=== PATIENT | male | born 1955 | race Caucasian/White ===

== ENCOUNTER 2018-10-31 06:52 | Day surgery (SDC) | payer BC ==
[~2018-10-31] VITALS: Ht 177.8 cm; Wt 83.9 kg
[~2018-10-31 06:52] MED LIST: BENADRYL25 MG PO; PROAIR HFA8.5 GM INH; ZYRTEC10 M3 PO
[2018-10-31] MEDS ORDERED: MELOXICAM15 MG PO (07:12)
[2018-10-31] MEDS ORDERED: SYMBICORT 80-10.2 GM INH (07:13)
--- NOTE | 2018-10-31 08:46 | NUR ---
10/31/18 0846 Amber Kunz 0840 PATIENT ARRIVES TO PACU UNREPONSIVE TO VERBAL OR PAINFUL STIMULI. RESP EVEN, BUT DECREASED. DR NATION AT BEDSIDE, AWARE. 0845 PATIENT REPONDS TO PAINFUL STIMULI. RESP EVEN AND UNLABORED, DECREASED, BUT IMPROVES WITH STIMULATION. ROOM AIR SATS 89%, NC TURNED ON TO 2 LITERS.
--- NOTE | 2018-10-31 14:23 | NUR ---
PT RESTING, ALERT AND ORIENTED. PT HAS HAD PREVIOUS SCOPES, HAD FEW QUESTONS. BASICALLY WAITING, EXTENDED A BLESSING WILL FOLLOW NEEDED
--- NOTE | 2018-11-01 07:58 | OR ---
[facility] [address] [place], [place] [address] Signed DATE OF OPERATION: 10/31/2018 SURGEON: Shanique Nation MD COLONOSCOPY REPORT PREOPERATIVE DIAGNOSES: 1. Brother with a history of colonic polyps in his early 50s. 2. Diverticulosis. POSTOPERATIVE DIAGNOSES: 1. Moderate internal anal skin tag x1. 2. Minimal sigmoid diverticulosis. 3. Moderate internal and external hemorrhoids. PROCEDURE: Colonoscopy without biopsy. ESTIMATED BLOOD LOSS: None. INDICATIONS: Javier is a 63-year-old gentleman, who presents for a followup colonoscopy. His brother had colonic polyps in his early 50s. Javier is known to have diverticulosis. He had a previous colonoscopy in 2006 as well as 2012. In the meantime he has no lower GI complaints. I gave him a pamphlet on colonoscopy. We looked at that together along with the risks including, but not limited to gas, bloating, crampy abdominal pain, bleeding, perforation, requiring surgery, and missed diagnosis. We also discussed the need for IV conscious sedation. He had expressed understanding wished to proceed. PROCEDURE NOTE: Javier was taken into our endoscopy suite and placed in the left lateral decubitus position. He was given IV sedation with 9 mg of Versed and 175 mcg of fentanyl. A digital rectal exam was performed. He has good sphincter tone. He does have moderate external hemorrhoids. He has a few comedones around the anus. The prostate gland was indurated, but not particularly enlarged and no dominant nodules. The adult colonoscope was introduced and advanced under direct visualization of camera. It took just a few minutes to get through somewhat narrow and angulated sigmoid colon and then we made it around the hepatic flexure. I could see the blue discoloration from the liver and hepatic flexure looks very similar to the Crohn's foot. It took a few minutes and we Electronically Signed By: SHANIQUE NATION MD 11/01/18 0758 PATIENT NAME: JAVIER HERNANDEZ OPERATIVE REPORT DATE OF : 57 REPORT #: [id number] PHYSICIAN: SHANIQUE NATION MD PCP: RICO MINA MD REPORT IS CONFIDENTIAL AND NOT TO BE RELEASED WITHOUT AUTHORIZATION [facility] [address] [place], [place] [address] Signed got through that area and right down the right colon into the cecum itself. We then could easily see the appendiceal orifice along with the ileocecal valve. His prep was good. The scope was slowly withdrawn. The entire colon was unremarkable except for a few diverticula in the sigmoid colon. Again, they are moderate in size, but few in number, and scattered about. The rectum was unremarkable. Upon retroflexion of the scope, he has just a single moderate-sized internal anal skin tag. After this, the gas was suctioned out and the colonoscope removed. Javier tolerated the procedure quite well. RECOMMENDATIONS: I will see Javier back in my office in 5 years for repeat colonoscopy. Shanique Nation MD ALB/MODL /[id number] cc: MD Shanique Tamayo MD Copies: RICO MINA MD, ANDREW L MD ~ Electronically Signed By: SHANIQUE NATION MD 11/01/18 0758 PATIENT NAME: JAVIER HERNANDEZ OPERATIVE REPORT DATE OF : 57 REPORT #: [id number] PHYSICIAN: SHANIQUE NATION MD PCP: RICO MINA MD REPORT IS CONFIDENTIAL AND NOT TO BE RELEASED WITHOUT AUTHORIZATION
== END 2018-10-31 09:50 | disposition home or self-care (01) ==
LOC: OPS 06:52 → DS 06:52 → OPS 08:15 → DS 08:15 → OPS 09:50
PROVIDERS: Colon & Rectal Surgery
PROC: 0DJD8ZZ Inspection of Lower Intestinal Tract, Via Natural or Artificial Opening Endoscopic (ICD-10-PCS; principal; 2018-10-31 08:15)
DX: Z12.11 Encounter for screening for malignant neoplasm of colon (principal); K64.8 Other hemorrhoids; K64.4 Residual hemorrhoidal skin tags; K57.30 Diverticulosis of large intestine without perforation or abscess without bleeding; F17.220 Nicotine dependence, chewing tobacco, uncomplicated; Z83.71 Family history of colonic polyps; Z79.899 Other long term (current) drug therapy
CPT/HCPCS: 99153; G0500; J2250; J3010; J7120

== ENCOUNTER 2022-11-15 07:00 | Day surgery (SDC) | payer MEDICARE, BC ==
[2022-11-08 14:15] VITALS: BP 128/78
[~2022-11-15] VITALS: Ht 177.8 cm; Wt 84.1 kg
[~2022-11-15 07:00] MED LIST changes: +MELOXICAM15 MG PO; +SYMBICORT 80-10.2 GM INH
[2022-11-15 07:14] VITALS: BP 127/74
[2022-11-15] MEDS ORDERED: LEVOFLOXACIN500 MG PO (07:18)
[2022-11-15 09:52] VITALS: BP 112/73
--- NOTE | 2022-11-15 10:10 | NUR ---
[facility] WIDE AWAKE WITH NO C/O'S. 939 SITTING UP IN BED SIPPING ON WATER. 944 GETTING DRESSED. 55 DC INSTRUCTIONS GIVEN. ALL QUESTIONS ANSWERED. LEFT VIA W/C.
--- NOTE | 2022-11-15 10:13 | NUR ---
PT ALERT, ORIENTED AND SEEMS SOMEWHAT SUBDUED.PT INFORMED ME HE IS ANXIOUS TO LEAVE. HOPES "THIS WILL HAPPEN SOON". PT REQUESTED PRAYER, MENTIONED HIS [place] BE HERE AT [place]. WILL FOLLOW
== END 2022-11-15 09:55 | disposition home or self-care (01) ==
LOC: DS 07:00 → OPS 07:00 → EDSTATUS 09:00 → US 09:00 → OPS 09:55
PROVIDERS: ATTEND Urology
PROC: 0VB03ZX Excision of Prostate, Percutaneous Approach, Diagnostic (ICD-10-PCS; principal; 2022-11-15 09:45)
DX: N40.0 Benign prostatic hyperplasia without lower urinary tract symptoms (principal)
CPT/HCPCS: 00860; 76942; 99153; G0500; J0696; J2250; J2704; J7121

== ENCOUNTER 2025-06-10 06:10 | Day surgery (SDC) | payer MEDICARE, BC ==
[~2025-06-10] VITALS: Ht 177.8 cm; Wt 84.0 kg
--- NOTE | ~2025-06-10 | OR ---
[facility] [address] [place], [place] [address] Draft DATE OF OPERATION: 06/10/2025 SURGEON: Carla Gil MD PREOPERATIVE DIAGNOSIS: Surveillance colonoscopy. POSTOPERATIVE DIAGNOSIS: Sigmoid diverticulosis. No evidence of polyps. PROCEDURE: Total colonoscopy to cecum. ANESTHESIA: Intravenous sedation, fentanyl 100 mcg, and Versed 5 mg. INDICATION: This 70-year-old white man is a patient of [facility] and underwent colonoscopy with Dr. Tip Davila in 2002. There were no findings of note. There is a family history of polyps in a brother, but no family history of colon cancer proper. He is currently symptom free having no bleeding, diarrhea, or constipation. He is admitted at this time to undergo colonoscopy. He understands the risk of bleeding, infection, and perforation. FINDINGS: The prep was good. Complete colonoscopy was undertaken of the cecum. There were diverticula of the sigmoid, but no evidence of polyps or other abnormality throughout the colon. He did have hypertrophied anal papilla, which is of no concern. DESCRIPTION OF PROCEDURE: The patient was brought to the endoscopy suite and placed in lateral decubitus position, given intravenous sedation to the point of slurred speech and nystagmus. Digital rectal examination was normal. An Olympus video colonoscope was passed in the rectum and manipulated throughout the colon noting diverticula of the sigmoid and left colon. The scope was ultimately passed to the cecum. Full intubation of the cecum was undertaken showing the ileocecal valve and appendiceal orifice. The scope was withdrawn from that point. Careful inspection throughout showed no sign of abnormality other than diverticula of the left colon and sigmoid. Retroflexed view of the rectum was normal. Scope was removed. The patient PATIENT NAME: MOHAN HERNANDEZ OPERATIVE REPORT DATE OF : 57 REPORT #: [id number] PHYSICIAN: CARLA GIL MD PCP: [facility] PAC REPORT IS CONFIDENTIAL AND NOT TO BE RELEASED WITHOUT AUTHORIZATION [facility] [address] [place] [id number] Draft taken to the recovery room in good condition. CONCLUDING DIAGNOSIS: Diverticulosis. No evidence of polyps. PLAN: Recommend repeat colonoscopy in 10 years, sooner if symptoms should develop. Recommend high-fiber diet as well. MD ARRON Salinas/APPLE /[id number] cc: [facility] PA-C Copies: ~ PATIENT NAME: MOHAN HERNANDEZ OPERATIVE REPORT DATE OF : 57 REPORT #: [id number] PHYSICIAN: CARLA GIL MD PCP: [facility] PAC REPORT IS CONFIDENTIAL AND NOT TO BE RELEASED WITHOUT AUTHORIZATION
[~2025-06-10 06:10] MED LIST changes: +LEVOFLOXACIN500 MG PO; +MIDAZOLAM HCL 5 MG/5 ML VIAL IV PRN; +fentaNYL citrate 100 MCG/2 ML VIAL IV PRN
[2025-06-10 06:28] VITALS: BP 133/71
[2025-06-10] MEDS ORDERED: MIDAZOLAM HCL 5 MG/5 ML VIAL ONE (06:53)
[2025-06-10] MEDS ORDERED: fentaNYL citrate 100 MCG/2 ML VIAL ONE (06:54)
[2025-06-10] MEDS ORDERED: LIDOCAINE HCL 1% 5 ML SDV INJ ONE (07:00)
[2025-06-10] MEDS ORDERED: IBLOOD GLUCOSE TEST STRIP 1 EA TEST VI PRN (07:00)
[2025-06-10] MEDS ORDERED: LACTATED RINGER'S 1,000 ML IV SCH (07:00)
--- NOTE | 2025-06-10 08:38 | NUR ---
06/10/25 0838 Sarita Pantoja 0816 PT ARRIVED IN PACU SLEEPY. ABD SOFT. 0825 DR AT BEDSIDE. ALL QUESTIONS ANSWERED. 0835 SITTING UP IN BED SIPPING ON WATER. NO C/O'S.
[2025-06-10 08:43] VITALS: BP 119/68
== END 2025-06-10 08:50 | disposition home or self-care (01) ==
LOC: DS 06:10
PROVIDERS: ATTEND Surgery
PROC: 0DJD8ZZ Inspection of Lower Intestinal Tract, Via Natural or Artificial Opening Endoscopic (ICD-10-PCS; principal; 2025-06-10 07:30)
DX: Z12.11 Encounter for screening for malignant neoplasm of colon (principal); K57.30 Diverticulosis of large intestine without perforation or abscess without bleeding; K62.89 Other specified diseases of anus and rectum; F17.220 Nicotine dependence, chewing tobacco, uncomplicated
CPT/HCPCS: 99153; G0500; J2250; J3010; J7121